=== PATIENT | male | born 1985 | race Caucasian/White ===

== ENCOUNTER 2016-08-10 23:12 | Emergency (ER) | payer OTHER ==
[~2016-08-10] VITALS: Ht 177.8 cm; Wt 82.0 kg
[~2016-08-10 23:12] MED LIST: GABA800T PO; IBUP800T23 PO; ROBA750T PO; TAMS5CAP PO; TRIL300T PO
[2016-08-10 23:16] VITALS: BP 133/96; PULSE 70; RESP 18; TEMP 98.7; O2SAT 98
== END 2016-08-11 01:14 | disposition left against medical advice (07) ==
LOC: NED 23:12
DX: R11.10 Vomiting, unspecified (principal); Z53.21 Procedure and treatment not carried out due to patient leaving prior to being seen by health care provider
CPT/HCPCS: 99281

== ENCOUNTER 2016-08-17 04:56 | Emergency (ER) | payer OTHER ==
[~2016-08-17] VITALS: Ht 177.8 cm; Wt 77.0 kg
[2016-08-17 05:06] VITALS: BP 123/78; PULSE 86; RESP 16; TEMP 98.4; O2SAT 96
--- NOTE | 2016-08-17 05:17 | PD ---
HPI Chief Complaint: Injury Time Seen by Provider: 05:08 Travel History International Travel<30 days: No Contact w/Intl Traveler<30days: No Traveled to known affect area: No History of Present Illness HPI This is a 30-year-old male who presents for evaluation of right ankle pain. He reports that prior to arrival he was walking on the sidewalk. He reports that he twisted his right ankle when he was walking from the sidewalk into grass. He now has pain in the right ankle localized to the medial aspect of the right ankle. Pain is worse with movements of the right ankle. It is an aching pain. He denies any other injuries. He denies any pain in the right hip, thigh, knee, calf, lateral ankle, foot. Denies any numbness or tingling. He has no other complaints at this time. PFSH Past Medical History Hx Anticoagulant Therapy: No Asthma: Yes Bipolar Disorder: Yes Cardiovascular Problems: No Chemotherapy: No Cerebrovascular Accident: No Diminished Hearing: No Psychiatric: Yes (MANIC DEPRESSIVE) Respiratory: Yes (asthma, bronchitis) Immunizations Current: No Seizures: Yes Past Surgical History Tonsillectomy: Yes Social History Alcohol Use: No (PT DENIES) Tobacco Use: Yes (1 PPD, states no cigarettes for over a week) Substance Use: No (HX OF MARIJUANA; METH ABUSE-PT DENIES RECENT USE) Allergies-Medications (Allergen,Severity, Reaction): Coded Allergies: Penicillin (Verified Allergy, Severe, 08/17/16) Reported Meds & Prescriptions Reported Meds & Active Scripts Active Gabapentin 800 Mg Tab 800 Mg PO TID Review of Systems Musculoskeletal: Positive: Pain Skin: Positive Other (denies open wounds) Physical Exam Narrative GENERAL: Well-developed well-nourished male in no acute distress SKIN: Warm and dry. No open wounds, no bruising, no soft tissue swelling CARDIOVASCULAR: Regular rate and rhythm. No murmur appreciated. RESPIRATORY: No accessory muscle use. Clear to auscultation. Breath sounds equal bilaterally. Extremities: Examination of the right ankle reveals tenderness to palpation along the medial aspect of the ankle deltoid ligament complex. There is no tenderness to palpation along the shaft of the tibia or fibula. There is no tenderness to palpation to the Achilles tendon, right foot or toes. The patient maintains full dorsi and plantar flexion of the right ankle with some pain. There is no bruising or soft tissue swelling. 2+ dorsalis pedis and posterior tibial pulses. Data Data Last Documented VS Vital Signs Date Time Temp Pulse Resp B/P Pulse Ox O2 Delivery O2 Flow Rate FiO2 08/17/16 05:19 16 08/17/16 05:06 98.4 86 123/78 96 Room Air Orders Ankle, Complete ([id number]) (08/17/16 ) MDM Medical Decision Making Medical Screen Exam Complete: Yes Emergency Medical Condition: Yes Medical Record Reviewed: Yes Differential Diagnosis Medial ankle sprain, avulsion fracture, tibia fracture Narrative Course 30-year-old male presents with medial right ankle pain after twisting his ankle walking into grass from a sidewalk. Examination reveals that there is tenderness to palpation along the medial deltoid ligament complex. There is no bony deformity or bruising or soft tissue swelling likely the patient has suffered a medial ankle sprain. An x-ray was performed and reveals no acute bony abnormalities. The patient was offered crutches, splint, but the patient is declining since his that he has to go to work. He is encouraged to perform conservative measures of therapy including ibuprofen, rest, ice, elevation and he verbalized understanding. Diagnosis Primary Impression: Sprain of right medial ankle joint Qualified Code: S93.421A - Sprain of right medial ankle joint, initial encounter Additional Instructions: Apply ice packs all times a day 10-15 minutes at a time over the next 2-3 days. Rest. Avoid activities that exacerbate pain. Take Tylenol or Motrin for discomfort. Follow-up with primary care physician as needed. Return for any emergent medical conditions. Med/Other Pt SpecificInfo: No Change to Meds Disposition: 01 DISCHARGE HOME Condition: Stable Markos Hebert Aug 17, 2016 05:17
--- NOTE | 2016-08-17 05:55 | RADRPT ---
EXAM DATE/TIME: 08/17/2016 05:24 [facility] COMPARISON: No previous studies available for comparison. INDICATIONS : Right ankle pain from a jump. MEDICAL HISTORY : None. SURGICAL HISTORY : None. ENCOUNTER: Initial ACUITY: 1 day PAIN SCORE: 7/10 LOCATION: Right ankle FINDINGS: Three view exam was performed of the right ankle. The bony structures are in normal alignment. No e vidence of fracture, dislocation, or soft tissue swelling. The ankle mortise is intact. No radiopaq ue foreign bodies are seen. Bony mineralization is normal. CONCLUSION: No acute fracture. Deon Alfredo MD on August 17, 2016 at 5:54 Board Certified Radiologist. This report was verified electronically.
== END 2016-08-17 06:07 | disposition home or self-care (01) ==
LOC: NEPB 04:56
DX: S93.491A Sprain of other ligament of right ankle, initial encounter (principal); X50.0XXA Overexertion from strenuous movement or load, initial encounter; Y93.01 Activity, walking, marching and hiking; Y92.480 Sidewalk as the place of occurrence of the external cause
CPT/HCPCS: 73610; 99283

== ENCOUNTER 2016-12-01 08:08 | Emergency (ER) | payer OTHER ==
[~2016-12-01] VITALS: Ht 177.8 cm; Wt 70.0 kg
[~2016-12-01 08:08] MED LIST changes: -IBUP800T23 PO; -ROBA750T PO; -TAMS5CAP PO; -TRIL300T PO
--- NOTE | 2016-12-01 08:26 | PD ---
HPI Chief Complaint: medical clearance Time Seen by Provider: 08:17 Travel History International Travel<30 days: No Contact w/Intl Traveler<30days: No History of Present Illness HPI So 30-year-old man who presents to the emergency department brought in by law enforcement. Apparently was arrested today at around 5 AM. He was taken to the [place] [facility] where he reported that he had ingested "2 dimes" of heroin prior to being arrested. He was is brought to the emergency department for evaluation. Patient refusing any intervention at this time. Only answer some questions. He reports "it's just regular fucking heroin, not fentanyl". He really won't answer any more questions. He does state he has been feeling okay. Denies any recent illness or injury. History Past Medical History Narrative Medical Seizures IV drug use Social History Alcohol Use: No (PT DENIES) Tobacco Use: Yes (1 PPD, states no cigarettes for over a week) Allergies-Medications (Allergen,Severity, Reaction): Coded Allergies: Penicillin (Verified Allergy, Severe, 08/17/16) Reported Meds & Prescriptions Reported Meds & Active Scripts Active Gabapentin 800 Mg Tab 800 Mg PO TID Review of Systems Except as stated in HPI: all other systems reviewed are Neg Physical Exam Narrative GENERAL: 30-year-old man, no acute distress. Sitting in bed arms folded, somnolent. SKIN: Focused skin assessment warm/dry. HEAD: No evidence of trauma. CARDIOVASCULAR: Appears well perfused. RESPIRATORY: Normal respiratory rate. Adequate Respirations. No Respiratory distress. GASTROINTESTINAL: Abdomen soft, non-tender, nondistended. Hepatic and splenic margins not palpable. MUSCULOSKELETAL: No obvious deformities. NEUROLOGICAL: Somnolent. PSYCHIATRIC: Hostile. Data Data Orders Electrocardiogram (12/01/16 ) [facility] Medical Decision Making Medical Screen Exam Complete: Yes Emergency Medical Condition: Yes Differential Diagnosis Opiate ingestion, opiate overdose, malingering, personality disorder, intoxication, other Narrative Course Medical decision making 30-year-old male presents for concern for opiate ingestion. He is refusing any sort of intervention. He is a little somnolent but easily arousable and appears to have capacity. We'll monitor him in the emergency department for couple hours. If he passes out we will put him on a pulse ox. Diagnosis Primary Impression: Opiate overdose Additional Instructions: Avoid heroin. Disposition: 01 DISCHARGE HOME Condition: Stable Viel,Kristian C. MD Dec 01, 2016 08:26
== END 2016-12-01 11:00 | disposition home or self-care (01) ==
LOC: NEPE 08:08
DX: T40.1X1A Poisoning by heroin, accidental (unintentional), initial encounter (principal)
CPT/HCPCS: 99282

== ENCOUNTER 2017-02-14 00:21 | Emergency (ER) | payer OTHER ==
[~2017-02-14] VITALS: Ht 167.6 cm; Wt 70.0 kg
[2017-02-14] MEDS ORDERED: LORazepam 2 MG/ML VIAL IM ONE (00:30)
[2017-02-14] MEDS ORDERED: ZIPRASIDONE MESYLATE 20 MG VIAL IM ONE ×2 (00:30→01:00)
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
[2017-02-14 00:42] VITALS: BP 140/86; PULSE 104; RESP 22; TEMP 97.9; O2SAT 98
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
== END 2017-02-14 08:22 | disposition home or self-care (01) ==
LOC: NEPC 00:21
DX: S00.83XA Contusion of other part of head, initial encounter (principal); S00.81XA Abrasion of other part of head, initial encounter; J45.909 Unspecified asthma, uncomplicated; F31.9 Bipolar disorder, unspecified; F17.200 Nicotine dependence, unspecified, uncomplicated; Z79.899 Other long term (current) drug therapy; Z88.0 Allergy status to penicillin; W22.8XXA Striking against or struck by other objects, initial encounter
CPT/HCPCS: 70450; 96372; 99285; J2060; J3486

== ENCOUNTER 2017-05-11 23:40 | Emergency (ER) | payer OTHER ==
[~2017-05-11] VITALS: Ht 177.8 cm; Wt 75.0 kg
[2017-05-11 23:50] VITALS: BP 134/78; PULSE 89; RESP 16; TEMP 97.9; O2SAT 98
[2017-05-12 00:54] VITALS: BP 121/86; PULSE 92; RESP 22; O2SAT 99
[2017-05-12] MEDS ORDERED: SODIUM CHLOR 0.9% 1000 ML INJ 1,000 ML IV ONE (01:00)
[2017-05-12] MEDS ORDERED: LORazepam 2 MG/ML VIAL IV PUSH ONE (01:00)
--- NOTE | 2017-05-12 01:02 | PD ---
HPI Chief Complaint: GI Complaint Time Seen by Provider: 00:39 Travel History International Travel<30 days: No Contact w/Intl Traveler<30days: No Traveled to known affect area: No History of Present Illness HPI The patient is 31 year old male who presents to the [facility] emergency department with a history of reportedly not being able to sleep well for the last 10 days. He reports that the symptoms have greatly worsened over the last week. He reports that he last used methamphetamine 2 days ago. He is concerned that what he used was not methamphetamine as he has not felt right. He reports that today when he was agitated and seemed to have pain even with slight touch of his skin, he took Dilaudid 4 mg from a person from the street. The patient denies having any chest pain or shortness of breath. He reports that he has had nausea and vomiting 1-2 times per day over the last 2 weeks with diarrhea 1-2 times per day over the last 2 weeks. The patient reports that he has a history of seizure disorder and was previously on gabapentin and Trileptal, however since getting out of [facility] he has not had a prescription for the last 10 days. On review of systems otherwise, the patient denies any known recent fevers, cough, congestion, neck stiffness, abdominal pain, urinary symptoms, or other neurologic symptoms. [facility] Past Medical History Narrative Medical The patient's past medical history is significant for polysubstance abuse, seizure disorder, bipolar disorder, asthma. Hx Anticoagulant Therapy: No Asthma: Yes Bipolar Disorder: Yes Cardiovascular Problems: No Chemotherapy: No Cerebrovascular Accident: No Diminished Hearing: No Psychiatric: Yes (MANIC DEPRESSIVE) Respiratory: Yes (asthma, bronchitis) Immunizations Current: No Seizures: Yes Tetanus Vaccination: < 5 Years Past Surgical History Narrative Surgical The patient's past surgical history is significant for a tonsillectomy. Tonsillectomy: Yes Social History Alcohol Use: No (PT DENIES) Tobacco Use: Yes (1 PPD, states no cigarettes for over a week) Substance Use: Yes (HX OF MARIJUANA; METH dilaudid) Allergies-Medications (Allergen,Severity, Reaction): Coded Allergies: penicillin G (Unverified Allergy, Severe, 05/12/17) Reported Meds & Prescriptions Reported Meds & Active Scripts Active Gabapentin 800 Mg Tab 800 Mg PO TID Review of Systems Except as stated in HPI: all other systems reviewed are Neg General / Constitutional: No: Fever Eyes: No: Visual changes HENT: No: Headaches Cardiovascular: No: Chest Pain or Discomfort Respiratory: No: Shortness of Breath Gastrointestinal: Positive: Nausea, Vomiting, Diarrhea, Changes in Bowel Habits , No: Abdominal Pain, Hematemesis, Hematochezia, Indigestion, Loss of Appetite Genitourinary: No: Dysuria Musculoskeletal: No: Pain Skin: No Rash Neurologic: No: Weakness, Focal Abnormalities, Change in Mentation, Slurred Speech, Sensory Disturbance Psychiatric: Positive: Anxiety, Substance Abuse, No: Depression Endocrine: No: Polydipsia Hematologic/Lymphatic: No: Easy Bruising Physical Exam Narrative General: The patient is a well-developed thin appearing male, anxious appearing on examination, intermittently tearful, experiencing hyperesthesias with barely touching his skin. Head and Neck exam: Head is normocephalic atraumatic. Eyes: EOMI, pupils are equal round and reactive to light. Nose: Midline septum with pink mucous membranes Mouth: Dentition unremarkable. Moist mucus membranes. Posterior oropharynx is not erythematous. No tonsillar hypertrophy. Uvula midline. Airway patent. Neck: No palpable lymphadenopathy. No nuchal rigidity. No thyromegaly. Cardiovascular: Regular rate and rhythm without murmurs, gallops, or rubs. Lungs: Clear to auscultation bilaterally. No wheezes, rhonchi, or rales. Abdomen: Soft, without tenderness to palpation in all 4 quadrants of the abdomen. No guarding, rebound, or rigidity. Normal bowel sounds are audible. No tenderness on palpation of McBurney's point. Extremities: No clubbing, cyanosis, or edema. 2+ pulses in all 4 extremities. No calf tenderness on palpation. Back: No costovertebral angle tenderness to palpation. Neurologic Exam: Cranial nerves 2-12 were intact on exam. Strength is 5/5 in all 4 extremities. No sensory deficits noted. The patient is she on examination. Skin Exam: The patient has pick hall noted on his skin, no abscesses or pustules. Intact skin that is warm and dry. Data Data Last Documented VS Vital Signs Date Time Temp Pulse Resp B/P (MAP) Pulse Ox O2 Delivery O2 Flow Rate FiO2 05/12/17 00:54 92 22 121/86 (98) 99 Room Air 05/11/17 23:50 97.9 Orders Orders Electrocardiogram (05/12/17 00:53) Complete Blood Count With Diff (05/12/17 00:53) Comprehensive Metabolic Panel (05/12/17 00:53) Ckmb (Isoenzyme) Profile (05/12/17 00:53) Troponin I (05/12/17 00:53) Lipase (05/12/17 00:53) Urinalysis - C+S If Indicated (05/12/17 00:53) Magnesium (Mg) (05/12/17 00:53) Chest, Single Ap (05/12/17 00:53) Iv Access Insert/Monitor (05/12/17 00:53) Ecg Monitoring (05/12/17 00:53) Oximetry (05/12/17 00:53) Drug Screen, Random Urine (05/12/17 00:53) Alcohol (Ethanol) (05/12/17 00:53) Sodium Chlor 0.9% 1000 Ml Inj (Ns 1000 M (05/12/17 01:00) Lorazepam Inj (Ativan Inj) (05/12/17 01:00) CKMB (05/12/17 01:04) CKMB% (05/12/17 01:04) Labs Laboratory Tests Test 05/12/17 01:04 05/12/17 01:20 White Blood Count 10.2 TH/MM3 Red Blood Count 4.08 MIL/MM3 Hemoglobin 13.5 GM/DL Hematocrit 37.9 % Mean Corpuscular Volume 93.0 FL Mean Corpuscular Hemoglobin 33.0 PG Mean Corpuscular Hemoglobin Concent 35.5 % Red Cell Distribution Width 14.4 % Platelet Count 306 TH/MM3 Mean Platelet Volume 8.4 FL Neutrophils (%) (Auto) 54.6 % Lymphocytes (%) (Auto) 30.4 % Monocytes (%) (Auto) 11.7 % Eosinophils (%) (Auto) 2.7 % Basophils (%) (Auto) 0.6 % Neutrophils # (Auto) 5.5 TH/MM3 Lymphocytes # (Auto) 3.1 TH/MM3 Monocytes # (Auto) 1.2 TH/MM3 Eosinophils # (Auto) 0.3 TH/MM3 Basophils # (Auto) 0.1 TH/MM3 CBC Comment DIFF FINAL Differential Comment Blood Urea Nitrogen 10 MG/DL Creatinine 0.75 MG/DL Random Glucose 103 MG/DL Total Protein 7.1 GM/DL Albumin 3.4 GM/DL Calcium Level 8.5 MG/DL Magnesium Level 2.1 MG/DL Alkaline Phosphatase 65 U/L Aspartate Amino Transf (AST/SGOT) 27 U/L Alanine Aminotransferase (ALT/SGPT) 104 U/L Total Bilirubin 0.3 MG/DL Sodium Level 139 MEQ/L Potassium Level 3.8 MEQ/L Chloride Level 105 MEQ/L Carbon Dioxide Level 27.7 MEQ/L Anion Gap 6 MEQ/L Estimat Glomerular Filtration Rate 120 ML/MIN Total Creatine Kinase 316 U/L Creatine Kinase MB 5.9 NG/ML Creatine Kinase MB % 1.9 % Troponin I LESS THAN 0.02 NG/ML Lipase 194 U/L Ethyl Alcohol Level LESS THAN 3 MG/DL Urine Color YELLOW Urine Turbidity CLEAR Urine pH 5.5 Urine Specific [place] 1.012 Urine Protein NEG mg/dL Urine Glucose (UA) NEG mg/dL Urine Ketones NEG mg/dL Urine Occult Blood NEG Urine Nitrite NEG Urine Bilirubin NEG Urine Urobilinogen LESS THAN 2.0 MG/DL Urine Leukocyte Esterase NEG Urine RBC LESS THAN 1 /hpf Urine WBC 1 /hpf Urine Mucus FEW /lpf Microscopic Urinalysis Comment CULT NOT INDICATED Urine Opiates Screen NEG Urine Barbiturates Screen NEG Urine Amphetamines Screen POS Urine Benzodiazepines Screen NEG Urine Cocaine Screen NEG Urine Cannabinoids Screen POS MDM Medical Decision Making Medical Screen Exam Complete: Yes Emergency Medical Condition: Yes Medical Record Reviewed: Yes Differential Diagnosis Acute intoxication with a sympathomimetic substances, versus withdrawal syndrome , versus psychiatric disorder Narrative Course During the course of the patients emergency department visit, the patients history, examination, and differential diagnosis were reviewed with the patient. The patient had IV access obtained and blood work sent for analysis. The patient was placed on a playground monitor with oximetry and blood pressure monitoring. An ECG was done on arrival. The patient's ECG reveals a sinus rhythm heart rate of 99, incomplete right bundle branch block, no acute ST segment elevation or depression, tremulous baseline is noted which could be affecting interpretation and is related to the patient's twitchiness. The patient was initially provided and the record Ativan 1 mg IV, normal saline 1 L IV fluid bolus, however the patient refused to have IV access obtained after an initial attempt was made and he reported that it was too painful. The patients laboratory studies were reviewed and remarkable for a white count of 10.2, hemoglobin 13.5, platelets 306 with 11.7 monocytes, CMP is remarkable for an ALT of 104, CPK 316, MB percent 1.9, troponin I less than 0.02, lipase 194, urine drug screen is positive for amphetamines and cannabinoids, alcohol level less than 3. Urinalysis is unremarkable. Radiology studies were reviewed and remarkable for a chest x-ray that shows no acute cardiopulmonary disease. The patient on reevaluation was sleeping soundly. The patient will be discharged home. The patient is instructed regarding the importance of avoiding use of illicit drugs. He will be given information regarding following up with the [facility] for consideration of detox in the future. The patient is resting comfortably and feels better, is alert and in no distress. The patients results and examination findings were discussed with the patient. The repeat examination is unremarkable and benign. The history, exam, diagnostic testing, and current condition do not suggest any significant pathology to warrant further testing, continued ED treatment, admission, or surgical evaluation at this point. The vital signs have been stable. The patient does not have uncontrollable pain, intractable vomiting, or other significant symptoms. The patient's condition is stable and appropriate for discharge. The patient will pursue further outpatient evaluation with a primary care physician or other designated or consulting physician as indicated in the discharge instructions. The patient expressed understanding and was agreeable with this plan. Diagnosis Primary Impression: Polysubstance abuse Additional Impressions: Feeling agitated Insomnia Qualified Codes: F19.982 - Other psychoactive substance use, unspecified with psychoactive substance-induced sleep disorder Referrals: [facility] 3 days Patient Instructions: General Instructions, Polysubstance Abuse (ED) Med/Other Pt SpecificInfo: No Change to Meds Disposition: 01 DISCHARGE HOME Condition: Stable Dafne Lau MD May 12, 2017 01:01
--- NOTE | 2017-05-12 01:19 | RADRPT ---
EXAM DATE/TIME: 05/12/2017 00:59 [facility] COMPARISON: No previous studies available for comparison. INDICATIONS : Cough. MEDICAL HISTORY : None. SURGICAL HISTORY : None. ENCOUNTER: Initial ACUITY: 1 day PAIN SCORE: 0/10 LOCATION: Bilateral chest FINDINGS: A single view of the chest demonstrates the lungs to be symmetrically aerated without evidence of mas s, infiltrate or effusion. The cardiomediastinal contours are unremarkable. Osseous structures are intact. CONCLUSION: No evidence of acute cardiopulmonary disease. Gio Freedman MD on May 12, 2017 at 1:17 Board Certified Radiologist. This report was verified electronically.
[2017-05-12 01:21] LABS: AUTOMATED NEUTROPHIL # 5.5 TH/MM3 (1.8-7.7); BASOPHIL # 0.1 TH/MM3 (0-0.2); BASOPHIL % 0.6 % (0.0-2.0); EOSINOPHIL # 0.3 TH/MM3 (0-0.4); EOSINOPHIL % 2.7 % (0.0-4.0); HEMATOCRIT 37.9 % (39.0-51.0); HEMO FLAGS DIFF FINAL; LYMPH % 30.4 % (9.0-44.0); LYMPHOCYTE # 3.1 TH/MM3 (1.0-4.8); MEAN CORPUSCULAR HGB CONC 35.5 % (32.0-36.0); MONO % 11.7 % (0.0-8.0); NEUT % 54.6 % (16.0-70.0); PLATELET COUNT 306 TH/MM3 (150-450); RED BLOOD COUNT 4.08 MIL/MM3 (4.50-5.90); RED CELL DISTRIBUTION WIDTH 14.4 % (11.6-17.2); WHITE BLOOD COUNT 10.2 TH/MM3 (4.0-11.0)
[2017-05-12 01:38] LABS: ALT (GPT) 104 U/L (12-78); ANION GAP 6 MEQ/L (5-15); AST (GOT) 27 U/L (15-37); BICARBONATE 27.7 MEQ/L (21.0-32.0); BLOOD UREA NITROGEN 10 MG/DL (7-18); CHLORIDE 105 MEQ/L (98-107); GLOMERULAR FILTRATION RATE 120 ML/MIN (>89); MAGNESIUM 2.1 MG/DL (1.5-2.5); POTASSIUM 3.8 MEQ/L (3.5-5.1); SODIUM (NA) 139 MEQ/L (136-145)
[2017-05-12 01:39] LABS: BLOOD, URINE NEG (NEG); COMMENT (UR) CULT NOT INDICATED; CULTURE IF INDICATED CULT NOT INDICATED; GLUCOSE,URINE NEG (NEG); KETONE, URINE NEG (NEG); MUCUS URINE FEW /lpf (OCC); NITRITE,URINE NEG (NEG); PH, URINE 5.5 (5.0-8.5); URINE COLOR YELLOW (YELLW/STRAW)
[2017-05-12 01:41] LABS: ALKALINE PHOSPHATASE 65 U/L (45-117); CREATINE KINASE 316 U/L (39-308); TOTAL BILIRUBIN ADULT 0.3 MG/DL (0.2-1.0)
[2017-05-12 01:46] LABS: ALCOHOL LESS THAN 3 MG/DL (0-5)
[2017-05-12 01:58] LABS: CKMB 5.9 NG/ML (0.5-3.6)
[2017-05-12 02:37] VITALS: BP 121/86; PULSE 88; RESP 16
[2017-05-12] MEDS ORDERED: TRIMSOL EACH EYE (06:47)
--- NOTE | 2017-05-12 10:06 | EKG ---
Date Performed: 05/12/2017 Time Performed: 01:04:51 PTAGE: 31 years EKG: Sinus rhythm POSSIBLE LEFT ATRIAL ENLARGEMENT INCOMPLETE RIGHT BUNDLE BRANCH BLOCK BORDERLINE ECG PREVIOUS TRACING : 07/06/2016 23.49 DOCTOR: Kristian Lipscomb Interpretating Date/Time 05/12/2017 10:04:32
== END 2017-05-12 02:53 | disposition home or self-care (01) ==
LOC: NEPE 23:40
DX: F19.182 Other psychoactive substance abuse with psychoactive substance-induced sleep disorder (principal); G47.00 Insomnia, unspecified; G40.909 Epilepsy, unspecified, not intractable, without status epilepticus; I45.10 Unspecified right bundle-branch block
CPT/HCPCS: 71010; 80053; 80307; 81001; 82550; 82552; 83690; 83735; 84484; 85025; 93005; 99285

== ENCOUNTER 2017-05-12 05:35 | Emergency (ER) | payer OTHER ==
[2017-05-12 05:39] VITALS: BP 125/87; PULSE 91; RESP 16; TEMP 98.4; O2SAT 99
--- NOTE | 2017-05-12 05:57 | PD ---
HPI Chief Complaint: Psychiatric Symptoms Time Seen by Provider: 05:41 Travel History International Travel<30 days: No Contact w/Intl Traveler<30days: No Traveled to known affect area: No History of Present Illness HPI 31-year-old white male returns to the ER after being discharged only a few hours ago. He now returns under Mcmillan act stating that he is going to kill himself because he is addicted to methamphetamine. He states that he cannot get into a detox facility because they do not detox people from methamphetamine. The patient denies any toxic ingestions. He denies any homicidal ideation. Patient claims he is going to cut his wrists. PFSH Past Medical History Hx Anticoagulant Therapy: No Asthma: Yes Bipolar Disorder: Yes Cardiovascular Problems: No Chemotherapy: No Cerebrovascular Accident: No Diminished Hearing: No Psychiatric: Yes (MANIC DEPRESSIVE) Respiratory: Yes (asthma, bronchitis) Immunizations Current: No Seizures: Yes Past Surgical History Tonsillectomy: Yes Social History Alcohol Use: No (PT DENIES) Tobacco Use: Yes (1 PPD, states no cigarettes for over a week) Substance Use: Yes (HX OF MARIJUANA; METH dilaudid) Allergies-Medications (Allergen,Severity, Reaction): Coded Allergies: penicillin G (Unverified Allergy, Severe, 05/12/17) Reported Meds & Prescriptions Reported Meds & Active Scripts Active Gabapentin 800 Mg Tab 800 Mg PO TID Review of Systems Except as stated in HPI: all other systems reviewed are Neg Physical Exam Narrative GENERAL: Well-nourished, well-developed patient. SKIN: Warm and dry. HEAD: Normocephalic and atraumatic. EYES: No scleral icterus. No injection or drainage. ENT: No nasal drainage noted. Mucous membranes pink. Airway patent. NECK: Supple, trachea midline. Moves head freely without obvious discomfort. CARDIOVASCULAR: Regular rate and rhythm without murmurs, gallops, or rubs. RESPIRATORY: Breath sounds equal bilaterally. No accessory muscle use. GASTROINTESTINAL: Abdomen soft, non-tender, nondistended. EXTREMITIES: No cyanosis or edema. BACK: Nontender without obvious deformity. No CVA tenderness. NEURO: Patient is alert and oriented. no sensorimotor deficits. Nonfocal. Normal speech. PSYCH: No delusions. No auditory or visual hallucinations. Data Data Last Documented VS Vital Signs Date Time Temp Pulse Resp B/P (MAP) Pulse Ox O2 Delivery O2 Flow Rate FiO2 10/4/17 05:39 98.4 91 16 125/87 (100) 99 Room Air Orders Orders Psych Screen (05/12/17 05:47) MDM Medical Decision Making Medical Screen Exam Complete: Yes Emergency Medical Condition: Yes Medical Record Reviewed: Yes Interpretation(s) Laboratory tests reviewed from his prior evaluation earlier today. Differential Diagnosis MDM: High Differential diagnoses: Schizophrenia, schizoaffective disorder, bipolar, anxiety, depression, adjustment reaction, mood disorder NOS, ODD, depressive disorder NOS, dementia, dementia with agitation, psychosis NOS, substance induced mood disorder, infection,electrolyte abnormality, malingering. Narrative Course Mental health screening discussed with the patient. Psychiatric screen ordered. The patient been medically cleared. This is medical clearance for psychiatric admission, polysubstance abuse Diagnosis Primary Impression: Medical clearance for psychiatric admission Additional Impression: Polysubstance abuse Condition: Stable Karson Carrizales May 12, 2017 05:57
[2017-05-12] MEDS ORDERED: TRIMSOL EACH EYE (06:47)
--- NOTE | 2017-05-12 10:59 | PD ---
Physical Exam Time Seen by Provider: 10:57 Narrative Please refer to previous providers documentation for details are in the patient' s current visit. Data Data Last Documented VS Vital Signs Date Time Temp Pulse Resp B/P (MAP) Pulse Ox O2 Delivery O2 Flow Rate FiO2 05/12/17 05:39 98.4 91 16 125/87 (100) 99 Room Air Orders Orders Psych Screen (05/12/17 05:47) Diet Regular Basic (05/12/17 Breakfast) Diet Regular Basic (05/12/17 Lunch) MDM Medical Record Reviewed: Yes Supervised Visit with SHITAL: No Narrative Course Patient was seen and evaluated, medically clear, psychiatry has also evaluated a Mcmillan act has been lifted. Patient will be discharged at this time. Diagnosis Primary Impression: Medical clearance for psychiatric admission Additional Impression: Polysubstance abuse Referrals: Primary Care Physician Patient Instructions: General Instructions, Polysubstance Abuse (ED) Med/Other Pt SpecificInfo: No Change to Meds Disposition: 01 DISCHARGE HOME Condition: Stable Rossy Almanza May 12, 2017 10:59
--- NOTE | 2017-05-12 11:00 | PD ---
History of Present Illness Chief Complaint: Psychiatric Symptoms Time Seen by Provider: 10:15 Travel History International Travel<30 Days: No Contact w/Intl Traveler<30days: No Known affected area: No Legal Status Legal Status: Mcmillan Act Mcmillan Act Signed By: Sunny Huntley Mcmillan Act Comment: Signed by [facility] Officer Mykel Rabago #[id number] History of Present Illness: 31-year-old male under a Mcmillan act for making suicidal statements. Patient was mostly uncooperative with this physician. He initially refused to open his eyes and speak. This was his same presentation to nurse Carolyne. When this physician shook the patient's shoulder to wake him, the patient was antagonistic , indicating he did not wish to speak with this physician, did not like this physician, to "fight off" and that he would heike to own this hospital if he were not admitted. This physician finds no significant objective clinical evidence the patient has a thought disorder. Instead, the patient's cognition is intact and he has no psychosis. This physician feels the patient is manipulating for a hospitalization psychiatric. Patient was referred to [facility] by this physician. He is also found to be positive for amphetamines and cannabis and has a history of positive toxicology screens in the past for illicit drugs. PFSH Past Medical History Hx Anticoagulant Therapy: No Asthma: Yes Bipolar Disorder: Yes Cardiovascular Problems: No Chemotherapy: No Cerebrovascular Accident: No Diminished Hearing: No Psychiatric: Yes (MANIC DEPRESSIVE) Respiratory: Yes (asthma, bronchitis) Immunizations Current: No Seizures: Yes Past Surgical History Tonsillectomy: Yes Psychiatric History Psychiatric History Hx Psychiatric Treatment: YES. This physician does not see evidence of a mental illness that supersedes the patient's drug abuse history and current behavior. Guns or firearms in home: No Social History Hx Alcohol Use: No (PT DENIES) Hx Tobacco Use: Yes (1 PPD, states no cigarettes for over a week) Hx Substance Use: Yes (Per records. ) Substance Use Type: Marijuana, Amphetamines-Stimulants, Cocaine Hx of Substance Use Treatment: No Allergies-Medications (Allergen,Severity, Reaction): Coded Allergies: penicillin G (Unverified Allergy, Severe, 05/12/17) Reported Meds & Prescriptions Reported Meds & Active Scripts Active Gabapentin 800 Mg Tab 800 Mg PO TID Review of Systems Except as stated in HPI: all other systems reviewed are Neg Exam Alert: Yes [place]: Person, Place, Date, Situation Mood: Angry Affect: Other Speech: Clear, Logical Eye Contact: Normal Memory Intact: Immediate, Recent, Remote Suicidal: Ideation Insight/Judgement Adequate MDM Medical Decision Making Medical Record Reviewed: Yes Assessment/Plan Patient interviewed at bedside, medical record reviewed extensively and case discussed with nurse aCrolyne. Patient is felt to be a drug addict and he is manipulating for a psychiatric hospital bed. This physician feels it is counter therapeutic to give into his manipulations, despite his threats of suicide and suing this hospital to "own it". Patient was referred to [facility] for treatment of his drug abuse. If he does not wish to go to [facility] this physician feels he is competent to make that choice. However, it would be inappropriate to admit him for psychiatric reasons. Finally, this physician understands the ongoing risk of the patient acting out and actually hurting himself or someone else. This risk is unavoidable and unpredictable. Orders Orders Psych Screen (05/12/17 05:47) Diet Regular Basic (05/12/17 Breakfast) Diet Regular Basic (05/12/17 Lunch) Results Vital Signs Date Time Temp Pulse Resp B/P (MAP) Pulse Ox O2 Delivery O2 Flow Rate FiO2 05/12/17 05:39 98.4 91 16 125/87 (100) 99 Room Air Diagnosis Primary Impression: Amphetamine abuse Additional Impression: Cannabis abuse Condition: Stable Problem Qualifiers David Oswald MD May 12, 2017 11:00
== END 2017-05-12 11:31 | disposition home or self-care (01) ==
LOC: NEPD 05:35
DX: F15.10 Other stimulant abuse, uncomplicated (principal); F12.10 Cannabis abuse, uncomplicated; J45.909 Unspecified asthma, uncomplicated; F31.9 Bipolar disorder, unspecified; R56.9 Unspecified convulsions; F17.200 Nicotine dependence, unspecified, uncomplicated; Z79.899 Other long term (current) drug therapy; Z88.0 Allergy status to penicillin
CPT/HCPCS: 99283